=== PATIENT | male | born 1980 | race Caucasian/White ===

== ENCOUNTER 2022-01-14 15:38 | Emergency (ER) | payer MEDICARE, MEDICAID ==
[~2022-01-14] VITALS: Ht 177.8 cm; Wt 90.0 kg
[2022-01-14] MEDS ORDERED: ACETAMINOPHEN 500MG TABLET PO ONE (16:45)
[2022-01-15] VITALS: BP 155/79
== END 2022-01-15 00:28 | disposition home or self-care (01) ==
LOC: ER 15:38
DX: G89.29 Other chronic pain (principal); M25.562 Pain in left knee; M25.561 Pain in right knee; F31.9 Bipolar disorder, unspecified; Z96.652 Presence of left artificial knee joint
CPT/HCPCS: 73562; 99283